=== PATIENT | female | born 1990 | race Caucasian/White ===

== ENCOUNTER 2016-09-13 13:57 | Emergency (ER) | payer MEDICAID ==
[~2016-09-13] VITALS: Ht 162.6 cm; Wt 47.0 kg
[~2016-09-13 13:57] MED LIST: CITA20TA4 PO; LORA1TAB12 PO; SPRI28TA PO; SUMA50TA2 PO
[2016-09-13 14:05] VITALS: BP 112/69; PULSE 70; RESP 16; TEMP 97.8; O2SAT 100
--- NOTE | 2016-09-13 16:39 | PD ---
HPI Chief Complaint: Musculoskeletal Complaint Time Seen by Provider: 16:00 Travel History International Travel<30 days: No Contact w/Intl Traveler<30days: No Traveled to known affect area: No History of Present Illness HPI 26-year-old female presents to the emergency room for evaluation of right flank/ posterior rib pain for the past 1.5 weeks. Patient went to [facility] at onset of symptoms where she had a complete workup including UA, blood work, and CT of her abdomen which were all negative according to patient. She stated that they told her because everything looked fine, there were no surgical or medical emergencies and that muscle pain or bone pain with heel with over-the- counter medications. Told to follow up with her primary care physician which she has not done. Patient states pain is persistent, worse with increased intrathoracic pressure such as sneezing, coughing, or laughing. She has not taken Tylenol, Motrin, aspirin, or Aleve because these medications "don't help. " Denies abdominal pain. PFSH Past Medical History Anxiety: Yes Depression: Yes Cancer: No Cardiovascular Problems: No Diminished Hearing: No Endocrine: No Genitourinary: No Immune Disorder: No Musculoskeletal: No Neurologic: No Psychiatric: Yes (PANIC ATTACKS) Reproductive: No Respiratory: No Immunizations Current: Yes Thyroid Disease: Yes (ENLARGED THYROID) Tetanus Vaccination: < 5 Years Influenza Vaccination: No ?: Unknown LMP: 3 WEEKS AGO : 1 Para: 1 Miscarriage: 0 : 0 Past Surgical History Other Surgery: No Social History Alcohol Use: Yes (very rarely) Tobacco Use: No Substance Use: No Allergies-Medications (Allergen,Severity, Reaction): Coded Allergies: No Known Allergies (Verified , 09/13/16) Reported Meds & Prescriptions Reported Meds & Active Scripts Active Flexeril (Cyclobenzaprine HCl) 5 Mg Tab 5 Mg PO Q8HR Sumatriptan (Sumatriptan Succinate) 50 Mg Tab 50 Mg PO ONCE PRN If a satisfactory response has not been obtained at 2 hours, a second dose may be administered Lorazepam 1 Mg Tab 1 Mg PO BID PRN Citalopram (Citalopram Hydrobromide) 20 Mg Tab 20 Mg PO DAILY Sprintec 28 (Norgestimate-Ethinyl Estradiol) 0.25-35 mg-Mcg Tab 1 Tab PO DAILY Review of Systems Except as stated in HPI: all other systems reviewed are Neg Physical Exam Narrative GENERAL: Well-nourished, well-developed female in no acute distress. Afebrile. Ambulatory. SKIN: Warm and dry. No erythema or ecchymosis. HEAD: Normocephalic. EYES: No scleral icterus. No injection or drainage. NECK: Supple, trachea midline. No JVD or lymphadenopathy. CARDIOVASCULAR: Regular rate and rhythm without murmurs, gallops, or rubs. RESPIRATORY: Breath sounds equal bilaterally. No accessory muscle use. GASTROINTESTINAL: Abdomen soft, non-tender, nondistended. BACK: Nontender without obvious deformity. Extreme right-sided CVA tenderness. Data Data Last Documented VS Vital Signs Date Time Temp Pulse Resp B/P Pulse Ox O2 Delivery O2 Flow Rate FiO2 09/13/16 14:05 97.8 70 16 112/69 100 Orders Urinalysis - C+S If Indicated (09/13/16 16:26) Ed Urine Pregnancytest Poc (09/13/16 16:26) Labs Laboratory Tests Test 09/13/16 16:35 Urine Collection Type CLEAN CATCH Urine Color STRAW Urine Turbidity CLEAR Urine pH 6.5 Urine Specific [place] 1.015 Urine Protein NEG mg/dL Urine Glucose (UA) NEG mg/dL Urine Ketones NEG mg/dL Urine Occult Blood NEG Urine Nitrite NEG Urine Bilirubin NEG Urine Leukocyte Esterase NEG Urine WBC 0-2 /hpf Urine Squamous Epithelial 0-5 /hpf Cells Microscopic Urinalysis Comment CULT NOT INDICATED MDM Medical Decision Making Medical Screen Exam Complete: Yes Emergency Medical Condition: Yes Medical Record Reviewed: Yes Differential Diagnosis Muscle spasm versus CVA tenderness versus malingering Narrative Course 26-year-old female presents to the emergency room for evaluation of right flank pain for the past 1.5 weeks. Patient went to an outside hospital at onset of symptoms and had a full workup which was completely negative. She was told there are no surgical emergencies and that muscle/rib pain but he on its own. States pain is severe but she has not taken any [id number] medications for it. Physical exam reveals extreme tenderness patient has a right posterior rib cage, just slightly above the kidney area. Patient cannot localize pain well. Likely musculoskeletal. No indication for repeat workup. test is negative. UA shows no evidence of stone or infection. I spoke to my attending physician, Dr. Kearns, who was made aware of patient's history and exam. He agrees with plan. Patient discharged with Flexeril and told to follow up with the primary care physician or return for worsening symptoms. She understands and agrees to this plan. Diagnosis Primary Impression: Muscle spasm Referrals: Primary Care Physician Patient Instructions: General Instructions, Muscle Spasm (ED) Additional Instructions: Rest and drink plenty of fluids. Take Flexeril as directed, as needed for pain. Take ibuprofen with food as directed, as needed for pain. Apply ice to the affected area for 20 minutes at a time, as needed for pain and swelling. Follow-up with a primary care physician. Return to the emergency room for worsening symptoms. Scripts Cyclobenzaprine (Flexeril)5 Mg Tab5 Mg PO Q8HR #15 TAB Ref 0 Prov:Blaine Kearns MD 09/13/16 Disposition: 01 DISCHARGE HOME Condition: Stable Colleen Mora Sep 13, 2016 16:39
[2016-09-13 16:41] LABS: BLOOD, URINE NEG (NEG); GLUCOSE,URINE NEG (NEG); KETONE, URINE NEG (NEG); NITRITE,URINE NEG (NEG); PH, URINE 6.5 (5.0-8.5)
[2016-09-13 17:17] LABS: METHOD OF COLLECTION CLEAN CATCH; SQUAMOUS EPITHELIAL CELL URINE 0-5 /hpf (0-5); URINE COLOR STRAW (YELLW/STRAW); WBC, URINE 0-2 /hpf (0-5)
[2016-09-13 17:18] LABS: COMMENT (UR) CULT NOT INDICATED; CULTURE IF INDICATED CULT NOT INDICATED
[2016-09-13] MEDS ORDERED: CYCL5TAB PO (17:24)
[2017-02-28] MEDS ORDERED: SPRI28TA PO (15:14)
[2017-02-28] MEDS ORDERED: LORA1TAB12 PO (15:25)
== END 2016-09-13 19:12 | disposition home or self-care (01) ==
LOC: PHED 13:57 → PHEFT 19:12
DX: M62.830 Muscle spasm of back (principal); E07.9 Disorder of thyroid, unspecified
CPT/HCPCS: 81001; 84703; 99284